=== PATIENT | female | born 1990 | race Two or more races ===

== ENCOUNTER 2023-05-14 16:22 | Emergency (ER) | payer OTHER ==
[~2023-05-14] VITALS: Ht 167.6 cm; Wt 90.7 kg
== END 2023-05-14 20:24 | disposition home or self-care (01) ==
LOC: ER 16:22
DX: O20.9 Hemorrhage in early pregnancy, unspecified (principal); Z3A.13 13 weeks gestation of pregnancy

== ENCOUNTER 2023-05-28 22:23 | Emergency (ER) | payer OTHER ==
[~2023-05-28] VITALS: Ht 167.6 cm; Wt 88.5 kg
== END 2023-05-29 04:18 ==
LOC: ER 22:23
PROVIDERS: Emergency Medicine
DX: O20.9 Hemorrhage in early pregnancy, unspecified (principal); O41.02X0 Oligohydramnios, second trimester, not applicable or unspecified; Z3A.16 16 weeks gestation of pregnancy

== ENCOUNTER 2023-06-01 13:48 | Emergency (ER) | payer OTHER ==
[~2023-06-01] VITALS: Ht 167.6 cm; Wt 88.9 kg
[2023-06-01] MEDS ORDERED: PRENATE DHA SO1 EAC1 (14:23)
== END 2023-06-01 20:55 | disposition home or self-care (01) ==
LOC: ER 13:48
PROVIDERS: General Practice
DX: O20.8 Other hemorrhage in early pregnancy (principal); Z3A.16 16 weeks gestation of pregnancy; N39.0 Urinary tract infection, site not specified

== ENCOUNTER 2023-06-03 08:00 | Outpatient (CLI) | payer OTHER ==
[~2023-06-03 08:00] MED LIST: PRENATE DHA SO1 EAC1
== END 2023-06-03 08:50 | disposition home or self-care (01) ==
LOC: PRENATAL 08:00
PROVIDERS: ATTEND Obstetrics & Gynecology Maternal & Fetal Medicine
DX: O26.849 Uterine size-date discrepancy, unspecified trimester (principal); O26.859 Spotting complicating pregnancy, unspecified trimester; O41.00X0 Oligohydramnios, unspecified trimester, not applicable or unspecified; O26.899 Other specified pregnancy related conditions, unspecified trimester; Z3A.16 16 weeks gestation of pregnancy

== ENCOUNTER 2023-06-03 09:21 | Inpatient (IN) | payer OTHER ==
[~2023-06-03] VITALS: Ht 167.6 cm; Wt 86.2 kg
== END 2023-06-05 08:53 | disposition home or self-care (01) | DRG 798 ==
LOC: OBS/DEL 09:21 → LDR 12:17 → O/R 06-04 17:12 → OB/GYN 06-04 20:13
PROVIDERS: ADMIT Specialist; ATTEND Specialist
PROC: 4A1HXCZ Monitoring of Products of Conception, Cardiac Rate, External Approach (ICD-10-PCS; 2023-06-03)
PROC: 10E0XZZ Delivery of Products of Conception, External Approach (ICD-10-PCS; 2023-06-04)
PROC: 3E0P7VZ Introduction of Hormone into Female Reproductive, Via Natural or Artificial Opening (ICD-10-PCS; 2023-06-04)
PROC: 3E033VJ Introduction of Other Hormone into Peripheral Vein, Percutaneous Approach (ICD-10-PCS; 2023-06-04)
PROC: 3E0DXGC Introduction of Other Therapeutic Substance into Mouth and Pharynx, External Approach (ICD-10-PCS; 2023-06-04)
PROC: 10D17ZZ Extraction of Products of Conception, Retained, Via Natural or Artificial Opening (ICD-10-PCS; principal; 2023-06-04 18:45)
DX: O03.4 Incomplete spontaneous abortion without complication (principal); Z37.1 Single stillbirth; Z20.822 Contact with and (suspected) exposure to COVID-19

== ENCOUNTER 2025-01-14 08:45 | Outpatient (CLI) | payer OTHER | END 2025-01-14 08:46 | disposition home or self-care (01) | LOC: PRENATAL 08:45 | PROVIDERS: ATTEND Obstetrics & Gynecology Maternal & Fetal Medicine | DX: O36.80X0 Pregnancy with inconclusive fetal viability, not applicable or unspecified (principal); Z36.82 Encounter for antenatal screening for nuchal translucency; O09.529 Supervision of elderly multigravida, unspecified trimester; Z3A.12 12 weeks gestation of pregnancy ==

== ENCOUNTER 2025-01-28 14:00 | Emergency (ER) | payer OTHER ==
[~2025-01-28] VITALS: Ht 167.6 cm; Wt 99.8 kg
[2025-01-28 14:07] VITALS: BP 141/90; O2SAT 100
[2025-01-28] MEDS ORDERED: ACETAMINOPHEN 500 MG GEL..CAP PO STA (17:40)
[2025-01-28] MEDS ORDERED: ACETAMINOPHEN 500 MG GEL..CAP PO ONE (17:46)
[2025-01-28 18:03] LABS: HEMATOCRIT 34.4 % (36.0-45.00); MEAN CELL VOLUME 76.6 fL (80.00-100.00); MEAN CORPUSCULAR HEMOGLOBIN 24.6 pg (27.00-32.0); MEAN CORPUSCULAR HGB CONC 32.1 g/dl (32.0-36.0); PLATELET COUNT 324 K/uL (150-450); RED BLOOD COUNT 4.49 M/uL (4.00-6.00); RED CELL DISTRIBUTION WIDTH 20.9 % (11.5-14.5)
[2025-01-28 18:36] LABS: ALBUMIN 3.1 gm/dL (3.4-5.0); ALKALINE PHOSPHATASE 68 U/L (50-136); ALT/SGPT 22 U/L (12-78); ANION GAP 11 (10.0-20.0); AST/SGOT 23 U/L (15-37); BLOOD UREA NITROGEN 8 mg/dL (7-18); BUN CREA RATIO 16 (7.0-25.0); CALCIUM 8.9 mg/dL (8.5-10.1); CARBON DIOXIDE 26 mEq/L (21-32); CHLORIDE 104 mmol/L (98-107); CREATININE SERUM 0.51 mg/dL (0.55-1.02); GFR 137.23; GLOBULINA 4.2 G/DL (2.4-3.5); GLUCOSE FASTING 116 mg/dL (65-100); OSMOLALITY SERUM 273 MOSM/KG (275-295); POTASSIUM 3.93 mEq/L (3.5-5.1); SODIUM 137 mmol/L (136-145); TOTAL PROTEIN 7.3 gm/dL (6.4-8.2)
[2025-01-28 18:51] LABS: BILIRUBIN TOTAL < 0.10 mg/dL (0.3-1.2)
== END 2025-01-28 19:31 | disposition home or self-care (01) ==
LOC: ER 14:00
PROVIDERS: Preventive Medicine Public Health & General Preventive Medicine
DX: O26.892 Other specified pregnancy related conditions, second trimester (principal); Z3A.14 14 weeks gestation of pregnancy; R42 Dizziness and giddiness

== ENCOUNTER 2025-03-09 19:45 | Emergency (ER) | payer OTHER ==
[~2025-03-09] VITALS: Ht 167.6 cm; Wt 95.3 kg
[2025-03-09] MEDS ORDERED: CETIRIZINE HCL 5 MG/5 ML ML PO STA (21:36)
[2025-03-09] MEDS ORDERED: GUAIFENESIN/DEXTROMETHORPHAN 100MG/10ML BLIST.PACK PO STA (21:37)
[2025-03-09] MEDS ORDERED: GUAIFENESIN/DEXTROMETHORPHAN 100MG/10ML BLIST.PACK PO ONE (21:48)
[2025-03-09] MEDS ORDERED: CETIRIZINE HCL 5MG/5ML BLIST.PACK PO ONE (21:48)
[2025-03-09 22:08] LABS: BASO % 0.3 % (0.1-1.2); EOS # 0.15 (0.04-0.54); EOS % 1.7 % (0.7-7.0); HEMATOCRIT 29.8 % (34.1-44.9); HEMOGLOBIN 9.6 g/dL (11.2-15.7); LYMPH # 1.16 (1.18-3.74); LYMPH % 12.8 % (19.3-53.1); MEAN CORPUSCULAR HEMOGLOBIN 24.9 pg (25.6-32.2); MONO # 0.66 (0.24-0.82); MONO % 7.3 % (4.7-12.5); NEUT # 7.04 (1.56-6.13); NEUT % 77.6 % (34.0-71.1); PLATELET COUNT 263 K/uL (163-369); RED BLOOD COUNT 3.86 M/uL (3.93-5.22); RED CELL DISTRIBUTION WIDTH 19.6 % (11.6-14.4)
[2025-03-09 22:20] LABS: POTASSIUM 3.9 mEq/L (3.5-5.1)
[2025-03-09 22:25] LABS: INFLUENZA A AG NEGATIVE (NEGATIVE); INFLUENZA B AG NEGATIVE (NEGATIVE)
[2025-03-09 22:29] LABS: ALBUMIN 2.9 gm/dL (3.4-5.0); BILIRUBIN TOTAL 0.16 mg/dL (0.3-1.2); CALCIUM 8.7 mg/dL (8.5-10.1); CREATININE SERUM 0.52 mg/dL (0.55-1.02); GFR 134.19; GLOBULINA 3.8 G/DL (2.4-3.5); TOTAL PROTEIN 6.7 gm/dL (6.4-8.2)
[2025-03-09 23:31] LABS: COVID-19 AG POSITIVE (NEGATIVE)
[2025-03-09] MEDS ORDERED: MUCINEX DM ER1 EACH PO (23:56)
[2025-03-09] MEDS ORDERED: ZYRTEC10 MG PO (23:56)
== END 2025-03-09 23:45 | disposition home or self-care (01) ==
LOC: ER 19:45
PROVIDERS: General Practice
DX: Z34.90 Encounter for supervision of normal pregnancy, unspecified, unspecified trimester (principal); Z3A.19 19 weeks gestation of pregnancy; U07.1 COVID-19

== ENCOUNTER 2025-03-11 07:51 | Outpatient (CLI) | payer OTHER ==
[~2025-03-11 07:51] MED LIST changes: +MUCINEX DM ER1 EACH PO; +ZYRTEC10 MG PO
== END 2025-03-11 07:52 | disposition home or self-care (01) ==
LOC: PRENATAL 07:51
PROVIDERS: ATTEND Obstetrics & Gynecology Maternal & Fetal Medicine
DX: O44.00 Complete placenta previa NOS or without hemorrhage, unspecified trimester (principal); O09.529 Supervision of elderly multigravida, unspecified trimester; O99.210 Obesity complicating pregnancy, unspecified trimester; Z3A.19 19 weeks gestation of pregnancy

== ENCOUNTER 2025-03-26 10:31 | Emergency (ER) | payer OTHER ==
[~2025-03-26] VITALS: Ht 167.6 cm; Wt 97.5 kg
== END 2025-03-26 11:35 | disposition home or self-care (01) ==
LOC: ER 10:31
DX: Z34.90 Encounter for supervision of normal pregnancy, unspecified, unspecified trimester (principal); Z3A.22 22 weeks gestation of pregnancy; I10 Essential (primary) hypertension

== ENCOUNTER 2025-04-22 08:15 | Outpatient (CLI) | payer OTHER ==
[2025-04-23] MEDS ORDERED: CHILDREN'S ASPI81 MG PO (13:31)
== END 2025-04-22 08:16 | disposition home or self-care (01) ==
LOC: PRENATAL 08:15
PROVIDERS: ATTEND Obstetrics & Gynecology Maternal & Fetal Medicine
DX: O26.849 Uterine size-date discrepancy, unspecified trimester (principal); O36.8199 Decreased fetal movements, unspecified trimester, other fetus; O09.529 Supervision of elderly multigravida, unspecified trimester; O99.210 Obesity complicating pregnancy, unspecified trimester; O36.5990 Maternal care for other known or suspected poor fetal growth, unspecified trimester, not applicable or unspecified; Z3A.25 25 weeks gestation of pregnancy

== ENCOUNTER 2025-04-23 13:21 | Inpatient (IN) | payer OTHER ==
[~2025-04-23] VITALS: Ht 167.6 cm; Wt 100.7 kg
[2025-04-23 12:40] VITALS: BP 132/87
[~2025-04-23 13:21] MED LIST changes: -CHILDREN'S ASPI81 MG PO
[2025-04-23] MEDS ORDERED: CHILDREN'S ASPI81 MG PO (13:31)
[2025-04-23] MEDS ORDERED: RINGERS SOLUTION,LACTATED 1,000 ML IV SCH (13:45)
[2025-04-23 15:02] LABS: BASO % 0.2 % (0.1-1.2); EOS # 0.22 (0.04-0.54); EOS % 1.7 % (0.7-7.0); LYMPH # 2.00 (1.18-3.74); LYMPH % 15.9 % (19.3-53.1); MEAN PLATELET VOLUME 9.70 fl (9.4-12.4); MONO # 0.80 (0.24-0.82); MONO % 6.4 % (4.7-12.5); NEUT # 9.49 (1.56-6.13); NEUT % 75.4 % (34.0-71.1); RED CELL DISTRIBUTION WIDTH 17.4 % (11.6-14.4)
[2025-04-23 15:02] LABS: URINE APPEARANCE Clear; URINE BACTERIA 2407.1 uL (0.0-1933); URINE BILIRRUBIN Negative (NEGATIVE); URINE BLOOD Negative; URINE COLOR Yellow; URINE EPITHELIAL CELLS 96.9 uL (0.0-38.8); URINE GLUCOSE Negative (NEGATIVE); URINE KETONE Negative (NEGATIVE); URINE LEUKOCYTE Trace; URINE NITRATE Negative; URINE PROTEIN Negative (NEGATIVE); URINE UROBILINOGEN 0.2 E.U./dl; URINE WBC 56.1 uL (0.0-23.2)
[2025-04-23 15:04] VITALS: BP 130/84
[2025-04-23 15:06] LABS: URINE CAST 0.43 uL (0.0-1.40); URINE RBC 0.8 uL (0.0-20.8)
[2025-04-23 15:56] LABS: ALT/SGPT 35.0 U/L (12-78); AST/SGOT 22.0 U/L (15-37); BILIRUBIN TOTAL 0.18 mg/dL (0.3-1.2); BUN CREA RATIO 16.0 (7.0-25.0); CREATININE SERUM 0.43 mg/dL (0.55-1.02); GFR 167.1; GLOBULINA 3.5 G/DL (2.4-3.5); GLUCOSE FASTING 69.0 mg/dL (65-100); OSMOLALITY SERUM 276.0 MOSM/KG (275-295)
[2025-04-23 19:24] VITALS: BP 119/80
[2025-04-23 23:22] VITALS: BP 119/79
[2025-04-24] VITALS (7 sets, daily range): BP systolic 103–124; BP diastolic 70–86
[2025-04-24] MEDS ORDERED: PNV,CALCIUM 72/IRON/FOLIC ACID 1 TAB TABLET PO SCH (10:50)
[2025-04-24] MEDS ORDERED: BETAMETHASONE ACETATE,SOD PHOS 30 MG/5 ML ML IM SCH (10:50)
[2025-04-24] MEDS ORDERED: BETAMETHASONE ACETATE,SOD PHOS 30 MG/5 ML ML ONE (11:14)
[2025-04-24 13:00] LABS: ALT/SGPT 39.0 U/L (12-78); AST/SGOT 24.0 U/L (15-37); BILIRUBIN TOTAL 0.18 mg/dL (0.3-1.2); BUN CREA RATIO 12.0 (7.0-25.0); CREATININE SERUM 0.42 mg/dL (0.55-1.02); GFR 171.69; GLOBULINA 3.5 G/DL (2.4-3.5); GLUCOSE FASTING 67.0 mg/dL (65-100); OSMOLALITY SERUM 273.0 MOSM/KG (275-295)
[2025-04-25 03:00] VITALS: BP 102/69
[2025-04-25 07:24] VITALS: BP 119/82
[2025-04-25] MEDS ORDERED: BETAMETHASONE ACETATE,SOD PHOS 30 MG/5 ML ML ONE (11:21)
[2025-04-25 11:48] VITALS: BP 120/79
[2025-04-25 13:03] VITALS: BP 135/88
[2025-04-25 13:23] LABS: URINE PROT QUANT 24HR 6.8 MG/DL
[2025-04-25 13:33] LABS: URINE PROT QUANT 24 HR 193.8 MG/24HR (42-225)
[2025-04-25 15:55] VITALS: BP 120/81
[2025-04-25 20:00] VITALS: BP 128/78
[2025-04-26 00:42] VITALS: BP 109/75
[2025-04-26] MEDS ORDERED: LABETALOL HCL 200 MG TABLET PO SCH (09:00)
[2025-04-26 09:16] VITALS: BP 125/82
[2025-04-26] MEDS ORDERED: SOD FERRIC GLUC COMPLX/SUCROSE 125 MG in 0.9 % SODIUM CHLORIDE 100 ML IV SCH (12:00)
[2025-04-26 13:46] VITALS: BP 114/73
[2025-04-26 16:09] VITALS: BP 108/71
[2025-04-27 01:23] VITALS: BP 113/72
[2025-04-27 09:48] VITALS: BP 123/81
[2025-04-27] MEDS ORDERED: LABETALOL HCL200 MG PO ×2 (13:27)
[2025-04-27] MEDS ORDERED: FERROUS SULFAT325 MG PO ×2 (13:27)
== END 2025-04-27 13:44 | disposition home or self-care (01) | DRG 833 ==
LOC: OBS/DEL 13:21 → LDR 04-24 10:44 → OB/GYN 04-24 10:44
PROVIDERS: Obstetrics & Gynecology; ADMIT Specialist; ATTEND Specialist
PROC: 4A1HXCZ Monitoring of Products of Conception, Cardiac Rate, External Approach (ICD-10-PCS; principal; 2025-04-24)
DX: O36.5920 Maternal care for other known or suspected poor fetal growth, second trimester, not applicable or unspecified (principal); Z3A.26 26 weeks gestation of pregnancy; O28.3 Abnormal ultrasonic finding on antenatal screening of mother; O99.012 Anemia complicating pregnancy, second trimester; D64.9 Anemia, unspecified

== ENCOUNTER → 2025-04-23 | Emergency (ER) | payer OTHER ==
[~2025-04-23] MED LIST changes: +CHILDREN'S ASPI81 MG PO
== END | disposition left against medical advice (07) ==
LOC: ER 11:29
DX: Z53.21 Procedure and treatment not carried out due to patient leaving prior to being seen by health care provider (principal)

== ENCOUNTER 2025-04-30 17:33 | Inpatient (IN) | payer OTHER ==
[~2025-04-30] VITALS: Ht 167.6 cm; Wt 97.5 kg
[2025-04-30 17:00] VITALS: BP 121/83
[~2025-04-30 17:33] MED LIST changes: +CHILDREN'S ASPI81 MG PO; +FERROUS SULFAT325 MG PO; +LABETALOL HCL200 MG PO
[2025-04-30] MEDS ORDERED: RINGERS SOLUTION,LACTATED 1,000 ML IV SCH (17:45)
[2025-04-30 18:28] LABS: BASO % 0.2 % (0.1-1.2); EOS # 0.20 (0.04-0.54); EOS % 1.4 % (0.7-7.0); LYMPH # 1.93 (1.18-3.74); LYMPH % 13.5 % (19.3-53.1); MEAN PLATELET VOLUME 9.30 fl (9.4-12.4); MONO # 0.82 (0.24-0.82); MONO % 5.8 % (4.7-12.5); NEUT # 11.08 (1.56-6.13); NEUT % 77.7 % (34.0-71.1); RED CELL DISTRIBUTION WIDTH 19.0 % (11.6-14.4)
[2025-04-30 18:29] LABS: URINE APPEARANCE Cloudy; URINE BILIRRUBIN Negative (NEGATIVE); URINE BLOOD Negative; URINE COLOR Yellow; URINE GLUCOSE Negative (NEGATIVE); URINE KETONE Trace (NEGATIVE); URINE LEUKOCYTE Trace; URINE NITRATE Negative; URINE PROTEIN 30 (NEGATIVE); URINE UROBILINOGEN 0.2 E.U./dl
[2025-04-30 18:32] LABS: URINE BACTERIA 1070.3 uL (0.0-1933); URINE EPITHELIAL CELLS 53.8 uL (0.0-38.8); URINE WBC 45.6 uL (0.0-23.2)
[2025-04-30 18:37] LABS: INR 0.94
[2025-04-30 18:42] LABS: ALT/SGPT 28.0 U/L (12-78); AST/SGOT 14.0 U/L (15-37); BILIRUBIN TOTAL 0.15 mg/dL (0.3-1.2); BUN CREA RATIO 13.0 (7.0-25.0); CREATININE SERUM 0.7 mg/dL (0.55-1.02); GFR 95.22; GLOBULINA 3.3 G/DL (2.4-3.5); GLUCOSE FASTING 125.0 mg/dL (65-100); OSMOLALITY SERUM 280.0 MOSM/KG (275-295)
[2025-04-30 18:49] VITALS: BP 121/83
[2025-04-30 19:34] LABS: URINE CAST 0.58 uL (0.0-1.40); URINE RBC 1.4 uL (0.0-20.8)
[2025-04-30 19:35] VITALS: BP 114/72
[2025-04-30 23:22] VITALS: BP 118/74; O2SAT 97
[2025-05-01 03:15] VITALS: BP 116/78; O2SAT 98
[2025-05-01 07:43] VITALS: BP 109/72; O2SAT 99
[2025-05-01] MEDS ORDERED: LABETALOL HCL 200 MG TABLET PO SCH (09:00)
[2025-05-01 11:44] VITALS: BP 104/68; O2SAT 98
[2025-05-01 15:09] VITALS: BP 108/69
[2025-05-01] MEDS ORDERED: CEFAZOLIN SODIUM 2,000 MG in DEXTROSE 5 % IN WATER 100 ML IV SCH (17:00)
[2025-05-01 20:14] VITALS: BP 111/73; O2SAT 100
[2025-05-01 23:41] VITALS: BP 109/73
[2025-05-02 03:14] VITALS: BP 126/76
[2025-05-02 08:00] VITALS: BP 112/78
[2025-05-02] MEDS ORDERED: PNV,CALCIUM 72/IRON/FOLIC ACID 1 TAB TABLET PO SCH (09:00)
[2025-05-02 11:40] VITALS: BP 106/71
[2025-05-02 15:25] VITALS: BP 110/74
[2025-05-02 19:22] VITALS: BP 118/77
[2025-05-02 23:26] VITALS: BP 104/68
[2025-05-03 04:10] VITALS: BP 103/66
[2025-05-03 06:10] VITALS: BP 131/84; O2SAT 100
[2025-05-03] MEDS ORDERED: RINGERS SOLUTION,LACTATED 1,000 ML IV SCH (07:45)
[2025-05-03] MEDS ORDERED: SOD FERRIC GLUC COMPLX/SUCROSE 62.5 MG in 0.9 % SODIUM CHLORIDE 50 ML IV SCH (09:00)
[2025-05-03 11:26] VITALS: BP 101/60; O2SAT 97
[2025-05-03 15:22] VITALS: BP 125/74
[2025-05-03 20:30] VITALS: BP 99/66
[2025-05-03 23:50] VITALS: BP 118/79
[2025-05-04 03:40] VITALS: BP 101/67
[2025-05-04 06:20] VITALS: BP 113/79; O2SAT 100
[2025-05-04 12:56] VITALS: BP 119/76; O2SAT 97
== END 2025-05-04 12:48 | disposition designated cancer center or children's hospital (05) | DRG 832 ==
LOC: OBS/DEL 17:33 → LDR 18:51
PROVIDERS: Obstetrics & Gynecology; ADMIT Specialist; ATTEND Specialist
PROC: 4A1HXCZ Monitoring of Products of Conception, Cardiac Rate, External Approach (ICD-10-PCS; principal; 2025-04-30)
PROC: BY4CZZZ Ultrasonography of Second Trimester, Single Fetus (ICD-10-PCS; 2025-04-30)
PROC: BY4CZZZ Ultrasonography of Second Trimester, Single Fetus (ICD-10-PCS; 2025-04-30)
PROC: BY47ZZZ Ultrasonography of Fetal Umbilical Cord (ICD-10-PCS; 2025-04-30)
DX: O41.02X0 Oligohydramnios, second trimester, not applicable or unspecified (principal); O10.012 Pre-existing essential hypertension complicating pregnancy, second trimester; O26.842 Uterine size-date discrepancy, second trimester; O36.8120 Decreased fetal movements, second trimester, not applicable or unspecified; O99.012 Anemia complicating pregnancy, second trimester; D64.9 Anemia, unspecified; O36.5920 Maternal care for other known or suspected poor fetal growth, second trimester, not applicable or unspecified; O33.9 Maternal care for disproportion, unspecified; Z3A.26 26 weeks gestation of pregnancy